=== PATIENT | male | born 1960 | race Caucasian/White ===

== ENCOUNTER 2016-12-25 22:17 | Emergency (ER) | payer SELFPAY ==
[~2016-12-25] VITALS: Ht 188 cm; Wt 151.0 kg
[2016-12-25 22:23] VITALS: BP 147/91; PULSE 63; TEMP 37.1; O2SAT 94; Ht 188 cm; Wt 151.0 kg
[2016-12-25] MEDS ORDERED: SPIR100T PO (22:56)
[2016-12-25] MEDS ORDERED: METO25TA3 PO (22:56)
[2016-12-25] MEDS ORDERED: OXCA600T2 PO (22:56)
[2016-12-25] MEDS ORDERED: DOXA4TAB5 PO (22:56)
[2016-12-25] MEDS ORDERED: DILT120C43 PO (22:56)
[2016-12-25] MEDS ORDERED: PROP225T PO (22:56)
[2016-12-25] MEDS ORDERED: SIMV10TA2 PO (22:56)
[2016-12-25] MEDS ORDERED: ASPI-461 PO (22:56)
[2016-12-25 23:05] LABS: MANUAL MICROSCOPIC REQUIRED? NO; REVIEW REQ? NO; URINE APPEARANCE CLEAR (CLEAR); URINE BILIRUBIN NEG (NEG); URINE COLOR YELLOW; URINE EPITHELIAL CELL AUTO 0-5 /lpf (0-5); URINE NITRITE NEG (NEG); URINE SPECIFIC GRAVITY 1.018 (1.000-1.030); UROBILINOGEN NEG (NEG); ZZUR CULT IF INDIC CLEAN CATCH NO
--- NOTE | 2016-12-26 04:51 | EMERGENCY ROOM VISIT NOTE ---
History First contact with patient: 22:33 Chief Complaint: HEMATURIA Stated Complaint: BLEEDING FROM URETHRA Nursing Triage Summary: PT has blood in urine, started today, no back pain or abd pain. denies HX of kidney stones or UTI. History of Present Illness The patient is a 56 year old male who presents to the Emergency Room with complaints of blood in his urine for the past one day. The patient does not have fever, back pain, chest pain, or abdominal pain. He does not have pain with urination. Evidently the patient is visiting from [place], and will be in the area for another week. He follows with urology back home, and has difficulty with urinary incontinence. He was wearing a sanitary pad in his underwear and noticed a small amount of blood in this. The patient evidently has had symptoms like this in the past, and did have a scope that was reportedly normal. The patient does not have other complaints. He is not on blood thinners. He does not have pain and rates his discomfort a 0/10. Review of Systems More than 10 systems were reviewed and otherwise negative with the exception of history of present illness. Past Medical/Surgical History History of hematuria Family History No pertinent family history Social History Smoking Status: Never Smoker Housing Status: lives with family Current/Historical Medications Scheduled Aspirin (Aspirin), 81 MG PO DAILY Diltiazem Hcl Coated Beads (Cartia Xt), 120 MG PO DAILY Doxazosin Mesylate (Doxazosin), 8 MG PO QPM Metoprolol Succinate (Toprol Xl), 25 MG PO DAILY Oxcarbazepine (Trileptal), 600 MG PO BID Propafenone Hcl (Propafenone Hcl), 225 MG PO BID Simvastatin (Zocor), 10 MG PO QPM Spironolactone (Aldactone), 100 MG PO DAILY Physical Exam Vital Signs Date Time Temp Pulse Resp B/P (MAP) Pulse Ox O2 Delivery O2 Flow Rate FiO2 12/25/16 22:23 37.1 63 20 147/91 94 Room Air Physical Exam VITALS: Vitals are noted on the nurse's note and reviewed by myself. Vital signs stable. GENERAL: Well-developed, well-nourished, white male, who is in no acute distress and resting comfortably. Patient is cooperative with the examination. HEART: Regular rate and rhythm without murmurs gallops or rubs. LUNGS: Clear to auscultation bilaterally without wheezes, rales or rhonchi. No retractions or accessory muscle use. ABDOMEN: Positive normal bowel sounds x 4. Soft, nontender, without masses or organomegaly. No guarding or rebound tenderness. : Normal-appearing external male genitalia. Circumcised phallus without significant urethral drainage, discharge, or ulceration. No testicular tenderness. No obvious hernia. Medical Decision & Procedures Laboratory Results Test 12/25/16 22:55 Urine Color YELLOW Urine Appearance CLEAR (CLEAR) Urine pH 5.0 (4.5-7.5) Urine Specific Jackson 1.018 (1.000-1.030) Urine Protein NEG (NEG) Urine Glucose (UA) NEG (NEG) Urine Ketones TRACE (NEG) Urine Occult Blood 2+ (NEG) Urine Nitrite NEG (NEG) Urine Bilirubin NEG (NEG) Urine Urobilinogen NEG (NEG) Urine Leukocyte Esterase NEG (NEG) Urine WBC (Auto) 1-5 /hpf (0-5) Urine RBC (Auto) >30 /hpf (0-4) Urine Hyaline Casts (Auto) 1-5 /lpf (0-5) Urine Epithelial Cells (Auto) 0-5 /lpf (0-5) Urine Bacteria (Auto) NEG (NEG) ED Course Physical exam and history were performed. Nursing notes, EMR, and Medication List were personally reviewed. Patient appears to have blood in his urine. He was able to provide a sample which did confirm 2+ blood in the urine. The patient is not having pain and is not on blood thinners. His physical exam is benign. He does not appear to have a UTI or other significant symptoms at this time. I discussed options of care with the patient, as he likely needs a urology evaluation. The patient is traveling from [place] and will be returning next week. I will provide him information for local urology as a convenience. The patient is otherwise to continue his normal medication and follow up with urology as soon as reasonably possible. He was certainly very back to the ER with any new, worsening, or concerning symptoms. The chart was completed utilizing [employer] Voice Recognition Software. Grammatical errors, random word insertions, pronoun errors, and incomplete sentences are an occasional consequence of this system due to software limitations, ambient noise, and hardware issues. Any formal questions or concerns about the content, text, or information contained within the body of this dictation should be directly addressed to the provider for clarification. . Medical Decision Differential diagnosis includes, but is not limited to: Hematuria, cancer, renal disease, kidney stone, UTI, pyelonephritis, STD, prostatitis, and others Blood Pressure Screening Patient's blood pressure: Elevated blood pressure Blood pressure disposition: Elevated BP felt to be situational Impression Primary Impression: Painless hematuria Departure Information Dispostion Home / Self-Care Condition GOOD Referrals Shine Alvarado MD, Urology Forms WORK / SCHOOL INSTRUCTIONS, HOME CARE DOCUMENTATION FORM, IMPORTANT VISIT INFORMATION Patient Instructions My [facility] Additional Instructions You were seen and evaluated today on an emergency basis only. This is not a substitute for, or an effort to provide, complete comprehensive medical care. It is not possible to recognize and treat all injuries or illnesses in a single emergency department visit. For this reason it is recommended that you followup with Urology in the next 1- 2 weeks for recheck of your condition. We have provided the information for local Urology, Dr. Alvarado, if you would like to be seen here before going home. Continue your medications as prescribed. You are welcome to return to the emergency department anytime with new, worsening, or concerning symptoms.
== END 2016-12-25 23:54 | disposition home or self-care (01) ==
LOC: C.EDB 22:20 → C.EDC 23:54
DX: R31.9 Hematuria, unspecified (principal); Z79.82 Long term (current) use of aspirin; Z87.448 Personal history of other diseases of urinary system; R03.0 Elevated blood-pressure reading, without diagnosis of hypertension

== ENCOUNTER 2017-07-17 23:09 | Emergency (ER) | payer SELFPAY ==
[~2017-07-17] VITALS: Ht 188 cm; Wt 154.0 kg
[~2017-07-17 23:09] MED LIST: ASPI-461 PO; DILT120C43 PO; DOXA4TAB5 PO; METO25TA4 PO; OXCA600T2 PO; PROP225T PO; SIMV10TA2 PO; SPIR100T PO
[2017-07-17 23:15] VITALS: TEMP 36.9; Ht 188 cm; Wt 154.0 kg
[2017-07-17] MEDS ORDERED: ONDANSETRON INJ 2 MG/ML 2 ML VIAL IV STA (23:44)
--- NOTE | 2017-07-17 23:53 | EMERGENCY ROOM VISIT NOTE ---
History Report prepared by Gala: Tania Hernandez Under the Supervision of: Dr. Mariah Wakefield D.O. First contact with patient: 23:18 Chief Complaint: CARDIAC ASSESSMENT Stated Complaint: HIGH PULSE RATE, NAUSEA, HEART ATTACK? History of Present Illness The patient is a 56 year old male who presents to the Emergency Room with complaints persistent general palpitations since 2244 today. He notes a general bad feeling everywhere and then he noticed that he was sweating. He states that he felt nervous and checked his blood pressure was in the 140s systolic. He vomited twice this evening here in triage. He reports dry mouth. He can feel his heartbeat. He notes that he was fine up until that time. He reports having diarrhea while here in the ED. He has a history of atrial fibrillation. He takes Aspirin. He had an ablation February 2017. He denies any chest pain. He states that he is visiting here. He denies any history of cardiac catheterization. He states that he did have a stress test performed over a year ago. He states that he did not do well that he "did not go the full distance." He denies any sick contacts. He states that he feels pressure in his abdomen. He notes nausea. Source of History: patient Onset: 2244 today Position: other (general ) Quality: other (palpitations) Timing: other (persistent) Associated Symptoms: + diaphoresis (sweating), + nausea, + vomiting, + abdominal pain (pressure), + diarrhea, No chest pain Note: Notes dry mouth. Review of Systems See HPI for pertinent positives & negatives. A total of 10 systems reviewed and were otherwise negative. Past Medical & Surgical Medical Problems: (1) Atrial fibrillation (2) Painless hematuria Surgical Problems: (1) History of cardiac radiofrequency ablation Family History Hypertension Social History Smoking Status: Never Smoker Smokeless Tobacco Use: No Alcohol Use: none Drug Use: none Marital Status: single Housing Status: lives with roommate Occupation Status: unemployed Current/Historical Medications Scheduled Aspirin (Aspirin), 81 MG PO DAILY Doxazosin Mesylate (Doxazosin), 8 MG PO QPM Metoprolol Succinate (Metoprolol Succinate ER), 25 MG PO DAILY Oxcarbazepine (Trileptal), 600 MG PO BID Simvastatin (Zocor), 10 MG PO QPM Spironolactone (Aldactone), 100 MG PO DAILY Allergies Coded Allergies: No Known Allergies (Unverified , 12/25/16) Physical Exam Vital Signs Date Time Temp Pulse Resp B/P (MAP) Pulse Ox O2 Delivery O2 Flow Rate FiO2 07/18/17 02:25 73 16 104/66 96 Room Air 07/18/17 02:24 68 18 110/67 94 07/18/17 02:00 68 18 110/67 94 Room Air 07/18/17 01:05 72 18 120/82 94 Room Air 07/18/17 00:00 82 108/75 93 Room Air 07/17/17 23:58 90 Nasal Cannula 2.0 07/17/17 23:41 104 07/17/17 23:41 104 20 133/79 91 Room Air 07/17/17 23:25 88 Room Air 07/17/17 23:15 36.9 116 20 132/86 95 Room Air Physical Exam General: uncomfortable, anxious. HEENT: Head - normocephalic and atraumatic Pupils are equal, round, and reactive to light. Extraocular eye muscles are intact, and sclera are anicteric. Nose - moist nasal mucosa without discharge. Mouth - moist buccal mucosa. Oropharynx is nonerythematous and there is no tonsillar exudate or edema noted. Neck: Supple; no JVD, nuchal rigidity, cervical lymphadenopathy, or auscultated bruits. Heart: Regular rate and rhythm. There is a normal S1 and S2 with no murmurs, clicks, or gallops appreciated. Lungs: Clear to auscultation bilaterally with no wheezes, rales, or rhonchi. Abdomen: Soft, completely nontender, nondistended, with good bowel sounds. There are no palpable pulsatile masses or hepatosplenomegaly. There is no guarding, rigidity, or rebound noted. Extremities: No evidence of cyanosis, clubbing, or edema. There are easily palpable peripheral pulses. Skin: warm with good turgor and no rashes. Pale.and diaphoretic. Medical Decision & Procedures Laboratory Results 07/17/17 23:25 Red Blood Count 4.74, Mean Corpuscular Volume 88.0, Mean Corpuscular Hemoglobin 31.2, Mean Corpuscular Hemoglobin Concent 35.5, Mean Platelet Volume 9.7, Neutrophils (%) (Auto) 67.4, Lymphocytes (%) (Auto) 27.0, Monocytes (%) (Auto) 4.3, Eosinophils (%) (Auto) 0.5, Basophils (%) (Auto) 0.1, Neutrophils # (Auto) 6.13, Lymphocytes # (Auto) 2.46, Monocytes # (Auto) 0.39, Eosinophils # (Auto) 0.05, Basophils # (Auto) 0.01 07/17/17 23:25 Test 07/17/17 23:25 07/18/17 01:35 White Blood Count 9.10 K/uL (4.8-10.8) Red Blood Count 4.74 M/uL (4.7-6.1) Hemoglobin 14.8 g/dL (14.0-18.0) Hematocrit 41.7 % (42-52) Mean Corpuscular Volume 88.0 fL (80-100) Mean Corpuscular Hemoglobin 31.2 pg (25-34) Mean Corpuscular Hemoglobin Concent 35.5 g/dl (32-36) Platelet Count 161 K/uL (130-400) Mean Platelet Volume 9.7 fL (7.4-10.4) Neutrophils (%) (Auto) 67.4 % Lymphocytes (%) (Auto) 27.0 % Monocytes (%) (Auto) 4.3 % Eosinophils (%) (Auto) 0.5 % Basophils (%) (Auto) 0.1 % Neutrophils # (Auto) 6.13 K/uL (1.4-6.5) Lymphocytes # (Auto) 2.46 K/uL (1.2-3.4) Monocytes # (Auto) 0.39 K/uL (0.11-0.59) Eosinophils # (Auto) 0.05 K/uL (0-0.5) Basophils # (Auto) 0.01 K/uL (0-0.2) RDW Standard Deviation 41.7 fL (36.4-46.3) RDW Coefficient of Variation 13.1 % (11.5-14.5) Immature Granulocyte % (Auto) 0.7 % Immature Granulocyte # (Auto) 0.06 K/uL (0.00-0.02) Red Blood Cell Morphology Unremarkable Anion Gap 7.0 mmol/L (3-11) Est Creatinine Clear Calc Drug Dose 87.1 ml/min Estimated GFR () 61.1 Estimated GFR (Non- 52.7 BUN/Creatinine Ratio 14.2 (10-20) Calcium Level 8.9 mg/dl (8.5-10.1) Total Bilirubin 0.3 mg/dl (0.2-1) Direct Bilirubin < 0.1 mg/dl (0-0.2) Aspartate Amino Transf (AST/SGOT) 40 U/L (15-37) Alanine Aminotransferase (ALT/SGPT) 70 U/L (12-78) Alkaline Phosphatase 107 U/L (45-117) Total Protein 7.9 gm/dl (6.4-8.2) Albumin 4.0 gm/dl (3.4-5.0) Lipase 120 U/L (73-393) Thyroid Stimulating Hormone (TSH) 2.820 uIu/ml (0.300-4.500) Troponin I < 0.015 ng/ml (0-0.045) Laboratory results per my review. Medications Administered Medications (Trade) Dose Ordered Sig/Juan Route Start Time Stop Time Status Last Admin Dose Admin Ondansetron HCl (Zofran Inj) 4 mg NOW STAT IV 07/17/17 23:44 07/17/17 23:46 DC 07/17/17 23:55 4 MG Procedure 2344: Ordered Zofran 4 mg IV ECG Per My Interpretation Indication: palpitations Rate (beats per minute): 76 Rhythm: normal sinus Findings: Q waves (Inferior), ST depression (Inferior), no ectopy Change: Repeat ECG: Normal Sinus Rhythm 100 bpm Findings: ST segments not as depressed, no ectopy. ED Course 2329: Past medical records reviewed. The patient was evaluated in room B6. A complete history and physical exam was performed. IV lock was established. A 12 -lead EKG was obtained. The patient went to the bathroom and had significant diarrhea. He was quite pale and diaphoretic after this episode. 2344: Ordered Zofran 4 mg IV. His EKG was repeated as described above. 0010: I reassessed the patient at this time. He feels better; his HR and blood pressure came down. He still has a feeling of being generally unwell. 0115: I reassessed the patient at this time. He is feeling better. He is drinking fluids. The patient will have a repeat troponin performed. 0215: I reassessed the patient at this time. He is feeling better and resting comfortably. I discussed the results and treatment plan with the patient. I answered all pertaining questions that he had. He expressed understanding and verbalized agreement. The patient will be discharged home. Medical Decision The patient is a 56 year old male who presents to the ED with palpitations. Differential diagnosis includes aortic dissection, pancreatitis, gastroenteritis , ACS, and cardiac dysrhythmia. Lab results showed: No leukocytosis. Stable H&H. BUN 21. Creat 1.4. Gluc 117. Normal LFTs. Normal Lipase. Normal TSH. Negative Troponin. Second Troponin is negative. This patient developed palpitations at home then became quite nauseated. Upon entering triage, the patient had 2 episodes of vomiting. Upon entering the exam room, the patient had moderate amount of diarrhea. The palpitations have resolved. He has absolutely no associated chest pain or abdominal pain. The patient had 2 negative troponins. The EKG had some ST segment depression in the inferior leads initially that then resolved. We have no previous EKG for comparison. The patient's symptoms completely resolved while here in the emergency department. I have asked the patient to follow-up closely with his primary care physician when he returns home on Saturday. If he has any worsening symptoms while here in [place], he should return here to the ER for further care. Medication Reconcilliation Current Medication List: was personally reviewed by me Blood Pressure Screening Patient's blood pressure: Normal blood pressure Impression Primary Impression: Palpitations Additional Impression: Vomiting and diarrhea Scribe Attestation The scribe's documentation has been prepared under my direction and personally reviewed by me in its entirety. I confirm that the note above accurately reflects all work, treatment, procedures, and medical decision making performed by me. Departure Information Dispostion Home / Self-Care Referrals No Doctor, Assigned (PCP) Forms IMPORTANT VISIT INFORMATION Patient Instructions ED Palpitations, GERD, GERD Lifestyle Changes, GERD Meds, My [facility], Vomit Diarrhea Self Care Additional Instructions Rest. Return to the ER for any chest pain or abdominal pain Take a bland diet. Follow up with PCP if symptoms persist. Take zantac - 150mg every 12 hours for next 2 weeks to see if it has an effect on your reflux. Problem Qualifiers
[2017-07-17 23:55] LABS: HEMATOCRIT 41.7 % (42-52); HEMOGLOBIN 14.8 g/dL (14.0-18.0); MEAN CORPUSCULAR HEMOGLOBIN 31.2 pg (25-34); MEAN CORPUSCULAR HGB CONC 35.5 g/dl (32-36); MEAN PLATELET VOLUME 9.7 fL (7.4-10.4); PLATELET COUNT 161 K/uL (130-400); RED CELL DISTRIBUTION WIDTH CV 13.1 % (11.5-14.5); RED CELL DISTRIBUTION WIDTH SD 41.7 fL (36.4-46.3)
[2017-07-17 23:58] VITALS: O2SAT 90
[2017-07-18] MEDS ORDERED: TPRSR25 PO (00:11)
[2017-07-18 00:17] LABS: BASO % 0.1 %; BASO ABS # 0.01 K/uL (0-0.2); EOS % 0.5 %; EOS ABS # 0.05 K/uL (0-0.5); IG# 0.06 K/uL (0.00-0.02); LYMPH ABS # 2.46 K/uL (1.2-3.4); MONO % 4.3 %; MONO ABS # 0.39 K/uL (0.11-0.59); NEUT % 67.4 %; NEUT ABS # 6.13 K/uL (1.4-6.5)
[2017-07-18 00:24] LABS: BLOOD UREA NITROGEN 21 mg/dl (7-18); CREATININE 1.45 mg/dl (0.60-1.40); GLUCOSE 117 mg/dl (70-99)
[2017-07-18 00:25] LABS: ALKALINE PHOSPHATASE 107 U/L (45-117); ALT/SGPT 70 U/L (12-78); AST/SGOT 40 U/L (15-37); CALCIUM 8.9 mg/dl (8.5-10.1); CARBON DIOXIDE 27 mmol/L (21-32); LIPASE 120 U/L (73-393); SODIUM 139 mmol/L (136-145); TOTAL PROTEIN 7.9 gm/dl (6.4-8.2)
[2017-07-18 02:25] VITALS: BP 104/66; PULSE 73; O2SAT 96
== END 2017-07-18 02:25 | disposition home or self-care (01) ==
LOC: C.EDB 23:09
DX: R00.2 Palpitations (principal); R11.2 Nausea with vomiting, unspecified; R19.7 Diarrhea, unspecified; I48.91 Unspecified atrial fibrillation; Z79.82 Long term (current) use of aspirin; Z82.49 Family history of ischemic heart disease and other diseases of the circulatory system; Z79.899 Other long term (current) drug therapy

== ENCOUNTER 2019-09-26 14:23 | Inpatient (IN) ==
[2019-09-26] MEDS ORDERED: LORazepam 1 MG TAB SL STA (15:00)
[2019-09-26] MEDS ORDERED: METOPROLOL TARTRATE 1 MG/ML VIAL IV PRN (15:00)
[2019-09-26] MEDS ORDERED: SODIUM CHLORIDE 0.9% 500 ML IV SCH (15:00)
--- NOTE | 2019-09-26 15:08 | Emergency Department Note ---
Impression & Plan Atrial fibrillation with RVR, Palpitations ED Provider Note NAME: DAVE LENTZ AGE: 58 SEX: M : 1960 ARRIVES VIA: Walk-In INFORMANT: [Patient] ED PROVIDER(S): [Corey Shah MD] CHIEF COMPLAINT: Palpitations HISTORY OF PRESENT ILLNESS: The patient is a 58-year-old male who is visiting from [place]. He is going to be here for about a month. The patient has a history of A. fib. A few years ago, he had an ablation. He does take metoprolol on a daily basis, no blood thinners other than a baby aspirin. The patient was doing some moving today, he was going up and down the stairs a bit. He had no difficulty with the stairs. He sat down to take a rest and felt his heart start to race. His pulse was irregular. No chest pain, no nausea, no shortness of breath. The patient states that this all began about 3 hours. The patient states that he was concerned he was back in A. fib, that is why he is here. The patient has been in baseline health, no cough or cold or congestion. He has been taking his medications as prescribed. At present, he feels anxious and is asking for a dose of Ativan, he does take this outside the hospital when he feels anxious. REVIEW OF SYSTEMS: See HPI for pertinent positives and negatives. A total of ten systems were reviewed and were otherwise negative. PMHx/PSHx: See Below SOCIAL HISTORY: See Below. PHYSICAL EXAM: GENERAL: Patient is in no acute distress. HEENT: No acute trauma, normocephalic atraumatic, mucous membranes moist, no nasal congestion, no scleral icterus. NECK: No stridor, no adenopathy, no meningismus, trachea is midline. LUNGS: Clear to auscultation bilaterally, no wheeze, no rhonchi, breath sounds equal. HEART: No murmurs, tachycardic, irregular rhythm. ABDOMEN: Soft, nontender, bowel sounds positive, no hernias, no peritonitis. EXTREMITIES: No cyanosis, very subtle mild bilateral pedal edema, full range of motion of all the joints without pain or difficulty, no signs for acute trauma. NEUROLOGIC: Oriented x 3, no acute motor or sensory deficits, no focal weakness. SKIN: No rash, no jaundice, no diaphoresis. Psych: Cooperative, does seem slightly anxious. DIFFERENTIAL DIAGNOSIS: Dehydration, A. fib, a flutter, SVT, AL, electrolyte abnormality, dehydration, thyroid disorder, renal failure. EMERGENCY DEPARTMENT COURSE/PROCEDURES: ECG: Indication was palpitations. The ECG shows an atrial fibrillation with a rate of 122. There is some nonspecific ST change diffusely. There is a potential old inferior infarct. No PVCs. The QTc is 487. Continuous Cardiac Monitoring: An order was placed for continuous cardiac monitoring. The monitor shows a rate of 125 with atrial fibrillation. Critical Care Note: I have personally spent greater than 42 minutes of critical care time in the direct management of this patient. This includes bedside care, interpretation of diagnostic studies, and testing, discussion with consultants, patient, and family members, and other required patient management activities. This 42 minutes is in excess of all separately billable procedures. MEDICAL DECISION MAKING: There is no leukocytosis or concerning anemia. No coagulopathy. No significant electrolyte abnormality or kidney failure. No concerning liver enzyme elevation. No evidence for pancreatitis. The patient appeared to be in a euthyroid state. ECG shows a rapid A. fib, no acute ischemia. Cardiac enzyme testing x1 is not consistent with acute cardiac injury. Chest x-ray does not show mediastinal widening, pneumonia or CHF. The patient was given IV saline, 1 L was given. He was initially given a dose of IV metoprolol however, his blood pressure dropped with this medication. He had only received 5 mg. Patient was given Ativan sublingual, 1 mg. This was given for anxiety. He was given a bolus of IV diltiazem and placed on a diltiazem drip. The patient is going to require hospitalization for the rapid A. fib. He is currently on a diltiazem drip. He is currently very comfortable in the room. I did speak to the patient and case management. The on-call hospitalist has been consulted. Past Med/Surg History Medical History Atrial fibrillation (Chronic) Social History Smoking Status: Never smoker Feels Safe at Home: Yes Allergies Allergies Allergy/AdvReac Type Severity Reaction Status Date / Time No Known Allergies Allergy Unverified 04/23/18 05:33 Home Meds Home Medications Medication Instructions Recorded Confirmed doxazosin 8 mg PO QPM 04/23/18 09/26/19 metoprolol succinate 25 mg PO DAILY 04/23/18 09/26/19 oxcarbazepine 600 mg PO BID 04/23/18 09/26/19 simvastatin 10 mg PO QPM 04/23/18 09/26/19 spironolactone 100 mg PO DAILY 04/23/18 09/26/19 aspirin 81 mg PO DAILY 09/26/19 09/26/19 omeprazole 20 mg PO QAM 09/26/19 09/26/19 quetiapine 25 mg PO QPM 09/26/19 09/26/19 Results & Data (ED) Vital Signs Vital Signs - 24 hr 09/26/19 14:26 09/26/19 14:55 09/26/19 15:08 Temperature 36.9 C Temperature Source Oral Pulse Rate 77 150 H 92 H Pulse Rate from SpO2 Sensor Pulse Rhythm Regular Pulse Strength Normal Respiratory Rate 20 19 15 Respiratory Effort / Characteristics Non-Labored Spontaneous Respiratory Depth Normal Respiratory Pattern Regular Blood Pressure 174/146 H Blood Pressure Mean 152 Blood Pressure Position Sitting Pulse Oximetry 95 Oxygen Delivery Method Room Air Sepsis Recent Fever Within 48 Hours No Sepsis New/Unexplained Change in Mental Status No Sepsis Action Taken by Nursing No Action Required 09/26/19 15:10 09/26/19 15:21 09/26/19 15:24 Temperature Temperature Source Pulse Rate 113 H 87 Pulse Rate from SpO2 Sensor Pulse Rhythm Pulse Strength Respiratory Rate 15 16 15 Respiratory Effort / Characteristics Respiratory Depth Respiratory Pattern Blood Pressure 98/76 L Blood Pressure Mean 79 Blood Pressure Position Pulse Oximetry Oxygen Delivery Method Sepsis Recent Fever Within 48 Hours Sepsis New/Unexplained Change in Mental Status Sepsis Action Taken by Nursing 09/26/19 15:29 09/26/19 15:31 09/26/19 15:40 Temperature Temperature Source Pulse Rate 101 H 159 H 111 H Pulse Rate from SpO2 Sensor 116 H Pulse Rhythm Pulse Strength Respiratory Rate 27 H 17 14 Respiratory Effort / Characteristics Respiratory Depth Respiratory Pattern Blood Pressure 100/79 122/77 Blood Pressure Mean 85 105 Blood Pressure Position Pulse Oximetry 95 Oxygen Delivery Method Sepsis Recent Fever Within 48 Hours Sepsis New/Unexplained Change in Mental Status Sepsis Action Taken by Nursing 09/26/19 15:44 09/26/19 15:45 09/26/19 15:50 Temperature Temperature Source Pulse Rate 124 H 117 H 122 H Pulse Rate from SpO2 Sensor 81 78 77 Pulse Rhythm Pulse Strength Respiratory Rate 12 14 15 Respiratory Effort / Characteristics Respiratory Depth Respiratory Pattern Blood Pressure 105/66 107/68 Blood Pressure Mean 72 77 Blood Pressure Position Pulse Oximetry 96 95 94 Oxygen Delivery Method Sepsis Recent Fever Within 48 Hours Sepsis New/Unexplained Change in Mental Status Sepsis Action Taken by Nursing 09/26/19 15:55 09/26/19 16:00 09/26/19 16:06 Temperature Temperature Source Pulse Rate 84 103 H 103 H Pulse Rate from SpO2 Sensor 73 89 109 H Pulse Rhythm Pulse Strength Respiratory Rate 17 19 15 Respiratory Effort / Characteristics Respiratory Depth Respiratory Pattern Blood Pressure 102/78 109/80 120/73 Blood Pressure Mean 87 84 88 Blood Pressure Position Pulse Oximetry 93 94 93 Oxygen Delivery Method Sepsis Recent Fever Within 48 Hours Sepsis New/Unexplained Change in Mental Status Sepsis Action Taken by Nursing 09/26/19 16:10 09/26/19 16:15 09/26/19 16:20 Temperature Temperature Source Pulse Rate 118 H 104 H 145 H Pulse Rate from SpO2 Sensor 75 81 83 Pulse Rhythm Pulse Strength Respiratory Rate 17 12 16 Respiratory Effort / Characteristics Respiratory Depth Respiratory Pattern Blood Pressure 114/74 118/89 Blood Pressure Mean 91 99 Blood Pressure Position Pulse Oximetry 95 94 95 Oxygen Delivery Method Sepsis Recent Fever Within 48 Hours Sepsis New/Unexplained Change in Mental Status Sepsis Action Taken by Longterm Medications Current Medication List: was personally reviewed by me Laboratory Data Attestation: I reviewed the patient's lab results. Result diagrams: 09/26/19 15:10 09/26/19 15:10 Lab Results 09/26/19 09/26/19 09/26/19 Range/Units 15:10 15:10 15:10 WBC 7.19 (4.8-10.8) K/uL RBC 4.63 L (4.7-6.1) M/uL Hgb 14.2 (14.0-18.0) g/dL Hct 41.1 L (42-52) % MCV 88.8 (80-100) fL MCH 30.7 (25-34) pg MCHC 34.5 (32-36) g/dL RDW Std Deviation 41.9 (36.4-46.3) fL RDW Coeff of Chris 13.0 (11.5-14.5) % Plt Count 163 (130-400) K/uL MPV 9.8 (7.4-10.4) fL Immature Gran % (Auto) 0.4 % Neut % (Auto) 72.7 % Lymph % (Auto) 18.4 % [place] % (Auto) 7.4 % Eos % (Auto) 0.8 % Baso % (Auto) 0.3 % Neut # (Auto) 5.23 (1.4-6.5) K/uL Lymph # (Auto) 1.32 (1.2-3.4) K/uL [place] # (Auto) 0.53 (0.11-0.59) K/uL Eos # (Auto) 0.06 (0-0.5) K/uL Baso # (Auto) 0.02 (0-0.2) K/uL Immature Gran # (Auto) 0.03 H (0.00-0.02) K/uL PT 11.1 (9.0-12.0) Seconds INR 1.1 (0.9-1.1) APTT 27.9 (21.0-31.0) Seconds PTT Ratio 1.0 Sodium 140 (136-145) mmol/L Potassium 3.9 (3.5-5.1) mmol/L Chloride 109 H (98-107) mmol/L Carbon Dioxide 26 (21-32) mmol/L Anion Gap 4.0 (3-11) BUN 20 H (7-18) mg/dl Creatinine 1.15 (0.6-1.4) mg/dl Est Cr Clr Drug Dosing Not Reportable Est GFR ( Amer) 79.7 Est GFR (Non-Af Amer) 68.8 BUN/Creatinine Ratio 17.4 (10-20) Glucose 126 H (70-99) mg/dl Calcium 8.9 (8.5-10.1) mg/dl Magnesium 2.0 (1.8-2.4) mg/dl Total Bilirubin 0.3 (0.2-1) mg/dl AST 38 H (15-37) U/L ALT 53 (12-78) U/L Alkaline Phosphatase 88 (45-117) U/L Troponin I < 0.015 (0-0.045) ng/ml Total Protein 7.7 (6.4-8.2) gm/dl Albumin 3.8 (3.4-5.0) gm/dl Globulin 3.9 (2.5-4.0) gm/dl Albumin/Globulin Ratio 1.0 (0.9-2) Lipase 94 (73-393) U/L TSH 0.990 (0.300-4.500) uIu/ml Administered Medications Diltiazem HCl 125 mg/ Dextrose 125 mls @ 5 mls/hr IV .Q24H [facility]; Protocol Stop: 10/26/19 15:44 Last Admin: 09/26/19 15:46 Dose: 5 mg/hr, 5 mls/hr Documented by: [id number] Cosigned by: [id number] Metoprolol Tartrate (Lopressor) 5 mg IV Q5M PRN PRN Reason: Tachycardia Stop: 10/26/19 14:59 Last Admin: 09/26/19 15:23 Dose: 5 mg Documented by: [id number] Discontinued Medications Diltiazem HCl (Cardizem) 10 mg IV NOW STA Stop: 09/26/19 15:33 Last Admin: 09/26/19 15:40 Dose: 10 mg Documented by: [id number] Cosigned by: [id number] Sodium Chloride (Nss) 500 mls @ 999 mls/hr IV .Q31M DAPHNE Stop: 09/26/19 15:30 Last Infusion: 09/26/19 15:50 Dose: 0 mls/hr Documented by: [id number] Admin: 09/26/19 15:23 Dose: 999 mls/hr Documented by: [id number] Sodium Chloride (Nss 1000ml) 500 mls @ 999 mls/hr IV .Q31M ONE Stop: 09/26/19 16:02 Last Infusion: 09/26/19 16:17 Dose: 0 mls/hr Documented by: [id number] Admin: 09/26/19 15:41 Dose: 999 mls/hr Documented by: [id number] Lidocaine/Epinephrine (Xylocaine/Epinephrine 1%) Confirm Administered Dose 20 ml .ROUTE .STK-MED ONE Stop: 09/26/19 16:24 Last Admin: 09/26/19 17:06 Dose: Not Given Documented by: [id number] Lidocaine/Epinephrine (Xylocaine/Epinephrine 1%) 20 ml INFIL NOW ONE Stop: 09/26/19 16:24 Last Admin: 09/26/19 17:05 Dose: 20 ml Documented by: [id number] Lorazepam (Ativan) 1 mg SL NOW STA Stop: 09/26/19 15:01 Last Admin: 09/26/19 15:23 Dose: 1 mg Documented by: [id number] Miscellaneous () 1 ea N/A NOW STA Stop: 09/26/19 15:33 Last Admin: 09/26/19 17:06 Dose: Not Given Documented by: [id number] Imaging Data Radiologist's Impression: XR chest 1V portable HISTORY: 58 years-old Male Chest Pain acute atypical chest pain COMPARISON: Chest radiograph 04/23/2018 TECHNIQUE: Portable AP view of the chest FINDINGS: Cardiac silhouette is mildly enlarged, unchanged. No pneumothorax, pleural effusion, airspace consolidation or overt pulmonary edema. Degenerative changes of the shoulders and spine. IMPRESSION: No acute process. Blood Pressure Blood Pressure Findings: Elevated blood pressure Blood Pressure Disposition: further management by hospitalist Discharge Plan Visit Data Chief Complaint: Cardiac Assessment Stated Complaint: A-FIB TYPICAL ED Provider: Corey Shah Discharge Problem: Atrial fibrillation with RVR, Palpitations Patient Disposition: Admitted As Inpatient Condition: Good Discharge Instructions Interventions: ED Discharge Assessment Last Done: 09/26/19 17:30 Forms Stand Alone Forms: [facility], Virtual Emergency Department, Important Visit Information Prescriptions Prescriptions: No Action quetiapine 25 mg tablet 25 mg PO QPM RF: 0 aspirin 81 mg Tablet,Delayed Release (Dr/Ec) 81 mg PO DAILY RF: 0 omeprazole 20 mg capsule,delayed release(DR/EC) 20 mg PO QAM RF: 0 spironolactone 100 mg tablet 100 mg PO DAILY RF: 0 simvastatin 10 mg tablet 10 mg PO QPM RF: 0 doxazosin 4 mg tablet 8 mg PO QPM RF: 0 oxcarbazepine 600 mg Tablet 600 mg PO BID RF: 0 metoprolol succinate 25 mg tablet extended release 24 hr 25 mg PO DAILY RF: 0 Referrals Referrals: PCP,NO [Primary Care Provider] -
--- NOTE | 2019-09-26 15:25 | XRay Report ---
XR chest 1V portable HISTORY: 58 years-old Male Chest Pain acute atypical chest pain COMPARISON: Chest radiograph 04/23/2018 TECHNIQUE: Portable AP view of the chest FINDINGS: Cardiac silhouette is mildly enlarged, unchanged. No pneumothorax, pleural effusion, airspace consoli dation or overt pulmonary edema. Degenerative changes of the shoulders and spine. IMPRESSION: No acute process. ACT 112: Negative or not required by law. The above report was generated using voice recognition software. It may contain grammatical, syntax o r spelling errors. Electronically signed by: Cody Child M.D. 09/26/2019 3:24 PM
[2019-09-26 15:27] LABS: Basophils # (auto) 0.02 K/uL (0-0.2); Basophils % (auto) 0.3 %; Eosinophils # (auto) 0.06 K/uL (0-0.5); Eosinophils % (auto) 0.8 %; Hematocrit (blood only) 41.1 % (42-52); Hemoglobin 14.2 g/dL (14.0-18.0); Immature Granulocytes # (auto) 0.03 K/uL (0.00-0.02); Immature Granulocytes % (auto) 0.4 %; Lymphocytes # (auto) 1.32 K/uL (1.2-3.4); Lymphocytes % (auto) 18.4 %; Mean Corpuscular Hemoglobin 30.7 pg (25-34); Mean Corpuscular Hgb Conc 34.5 g/dL (32-36); Mean Corpuscular Volume 88.8 fL (80-100); Mean Platelet Volume 9.8 fL (7.4-10.4); Monocytes # (auto) 0.53 K/uL (0.11-0.59); Monocytes % (auto) 7.4 %; Neutrophils # (auto) 5.23 K/uL (1.4-6.5); Neutrophils % (auto) 72.7 %; Platelet Count 163 K/uL (130-400); RDW Standard Deviation 41.9 fL (36.4-46.3); Red Blood Count 4.63 M/uL (4.7-6.1); White Blood Count 7.19 K/uL (4.8-10.8)
[2019-09-26] MEDS ORDERED: dilTIAZem HCl 5 MG/ML 5 ML VIAL IV STA (15:32)
[2019-09-26] MEDS ORDERED: STAT IV Infusion **Titration per Protocol STA (15:32)
[2019-09-26] MEDS ORDERED: SODIUM CHLORIDE 0.9% 1000ML 500 ML IV ONE (15:32)
[2019-09-26 15:39] LABS: INR 1.1 (0.9-1.1); Partial Thromboplastin Time 27.9 Seconds (21.0-31.0); Prothrombin Time 11.1 Seconds (9.0-12.0)
[2019-09-26 15:44] LABS: Alanine Aminotransferase 53 U/L (12-78); Albumin Level 3.8 gm/dl (3.4-5.0); Aspartate Aminotransferase 38 U/L (15-37); BUN Creatinine Ratio 17.4 (10-20); Blood Urea Nitrogen 20 mg/dl (7-18); Calcium 8.9 mg/dl (8.5-10.1); Carbon Dioxide 26 mmol/L (21-32); Chloride 109 mmol/L (98-107); Est GFR (African American) 79.7; Est GFR (Non-African American) 68.8; Glucose 126 mg/dl (70-99); Lipase 94 U/L (73-393); Potassium 3.9 mmol/L (3.5-5.1); Sodium 140 mmol/L (136-145)
[2019-09-26] MEDS: dilTIAZem HCL 125 MG in DEXTROSE 5% 100 ML IV SCH (15:46)
[2019-09-26 15:54] LABS: Alkaline Phosphatase 88 U/L (45-117); Bilirubin,Total 0.3 mg/dl (0.2-1); Globulin 3.9 gm/dl (2.5-4.0); Total Protein 7.7 gm/dl (6.4-8.2); Troponin I < 0.015 ng/ml (0-0.045)
[2019-09-26] MEDS ORDERED: LIDOCAINE/EPINEPHRINE 1% 20 ML VIAL INFIL ONE (16:23)
[2019-09-26] MEDS ORDERED: LIDOCAINE/EPINEPHRINE 1% 20 ML VIAL ONE (16:23)
--- NOTE | 2019-09-26 18:06 | Emergency Department Note ---
ED Visit Note Before the patient was transferred upstairs, he mentioned that he had a small abscess on his left proximal forearm. He had tried to open this with a pin a few days ago. On exam, the patient had a small area of inflammation to the left proximal posterior forearm. Small amount of puslike discharge was noted and this was sent for culture. The abscess was opened and drained as noted below. There were no complications. Abscess drainage: Using sterile technique the area was cleansed. Sterile drapes were applied. Lidocaine with epinephrine was used for anesthesia. Betadine was used for prep. An 11 blade scalpel was used to make a 1 cm incision. A small amount of pus did drain. The lesion was explored. No lo culations. The area was then dressed. There were no complications. Patient tolerated the procedure without difficulty. .
--- NOTE | 2019-09-26 18:19 | History & Physical Report ---
Date of Service September 26, 2019 Assessment & Plan (1) Atrial fibrillation with RVR: Rate control: started on diltiazem IV drip in ER. Will start PO metoprolol 12.5mg Q6H and wean diltiazem drip as able. Anticoagulation with heparin overnight given prior difficulty to rate control he may need cardioverting. FOFHR-0-OBIB 1 - consider chronic anticoagulation, will get HbA1c with a.m. labs to better assess score as he may be diabetic placing him in the moderate-high risk category TSH 0.99 TTE Consult cardiology (2) Palpitations: As above (3) Painless hematuria: History of this. Since we are restarting anticoagulation recommend repeat UA. Unclear diagnosis of this but he reports having cystoscopies in the past which have been negative. (4) Benign prostatic hyperplasia: Continue doxazosin 8 mg p.o. every afternoon (5) Olecranon bursitis of left elbow: vs abscess. Pus described in procedure note and also discussed with Dr. Shah that small amount of pus was present Start Keflex 500 mg 4 times daily pending Gram stain and culture. (6) Hypertension: Suspect he has primary hyperaldosteronism given described uncontrolled hypertension and subsequent improvement with spironolactone. Continue spironolactone 100 mg p.o. daily -can reduce if he requires blood pressure to increase metoprolol. (7) Chronic insomnia: Continue Seroquel 25 mg p.o. every afternoon (8) Hyperlipidemia: Continue simvastatin 10 mg p.o. every afternoon (9) Bipolar 1 disorder: Continue ox carbamazepine 600 mg p.o. twice daily Admission and Anticipated Discharge Date Admission Date: September 26, 2019 History of Present Illness Chief Complaint: Tachycardia, palpitations Primary Care Provider: NO PCP Mitchell Conley is a 58-year-old male with prior history of atrial fibrillation status post ablation who presents to the ER with acute onset fatigue, palpitations, skipped beats and tachycardia which he noticed after moving furniture around midday. No chest pain, nausea, shortness of breath, diaphoresis, orthopnea, PND, claudication, syncope or presyncope. He felt his pulse was irregular left for new from past experience he was in atrial fibrillation and came to the emergency room. He denies any alcohol use. He was first diagnosed with atrial fibrillation approximately 6 years ago at [facility] in [place]. At that time he was hospitalized for many days initially trialing rate control however he ended up having 3 cardioversions. He was started on warfarin at that time. Approximately 2 years later he took the opportunity to undergo ablation for the atrial fibrillation and after a short time of being in normal sinus rhythm he came off the warfarin. No fevers, chills, shortness of breath, cough, loss of taste or smell, nasal congestion. No known COVID-19 exposure. Allergies Allergy/AdvReac Type Severity Reaction Status Date / Time No Known Allergies Allergy Unverified 04/23/18 05:33 Home Medications Home Medications Medication Instructions Recorded Confirmed Type doxazosin 8 mg PO QPM 04/23/18 09/26/19 History metoprolol succinate 25 mg PO DAILY 04/23/18 09/26/19 History oxcarbazepine 600 mg PO BID 04/23/18 09/26/19 History simvastatin 10 mg PO QPM 04/23/18 09/26/19 History spironolactone 100 mg PO DAILY 04/23/18 09/26/19 History aspirin 81 mg PO DAILY 09/26/19 09/26/19 History omeprazole 20 mg PO QAM 09/26/19 09/26/19 History quetiapine 25 mg PO QPM 09/26/19 09/26/19 History Past Med/Surg History Medical History Atrial fibrillation (Chronic) Benign prostatic hyperplasia Bipolar 1 disorder Chronic insomnia Hyperlipidemia Hypertension Painless hematuria (Resolved) Social History Smoking Status: Never smoker Hx Alcohol Use: No Hx Substance Use: No Preferred Language: Slovenian Communication Ability: Effective Beliefs That Will Affect Care: None Current Living Situation: Alone Other Information That Helps Us Care for You: No Feels Safe at Home: Yes Review of Systems Review of Systems: All systems reviewed & are unremarkable except as noted in HPI & below Integumentary: 5 days of increasing swelling over the olecranon bursa on his left elbow. Overlying abrasion for potential infection. He is also been poking at it to try and relieve the fluid. Physical Exam Constitutional: well developed and + obese; no acute distress Eyes: + anicteric sclerae; normal pupil size ENMT: external ear and nose normal, oropharynx normal Neck: trachea midline, no thyromegaly + short neck and + thick neck Respiratory: normal respiratory effort, lungs clear to auscultation Cardiovascular: Rate/Rhythm: regular rate and + irregularly irregular Heart Sounds: no murmur Vessels: no JVD Extremities: normal capillary refill and + pedal edema (1+ bilateral to mid shins); no calf tenderness Gastrointestinal (Abdomen): normal bowel sounds, soft, nontender, no hepatosplenomegaly Musculoskeletal: no cyanosis or clubbing, extremities motor strength 5/5 Skin: no rashes, warm and dry Neurologic: moves all extremities and awake; no focal motor deficits and not confused Psychiatric: A+Ox3, euthymic affect Genitourinary: no CVA tenderness Lymphatic: no cervical or axillary lymphadenopathy Results & Data Results & Data ([facility]) Vital Signs (Past 12 Hours) Vital Signs Temp Pulse Resp BP Pulse Ox 09/26/19 16:20 145 H 16 95 09/26/19 16:15 104 H 12 118/89 94 09/26/19 16:10 118 H 17 114/74 95 09/26/19 16:06 103 H 15 120/73 93 09/26/19 16:00 103 H 19 109/80 94 09/26/19 15:55 84 17 102/78 93 09/26/19 15:50 122 H 15 94 09/26/19 15:45 117 H 14 107/68 95 09/26/19 15:44 124 H 12 105/66 96 09/26/19 15:40 111 H 14 122/77 95 09/26/19 15:31 159 H 17 09/26/19 15:29 101 H 27 H 100/79 09/26/19 15:24 87 15 98/76 L 09/26/19 15:21 16 09/26/19 15:10 113 H 15 09/26/19 15:08 92 H 15 09/26/19 14:55 150 H 19 174/146 H 09/26/19 14:26 36.9 C 77 20 95 Diagnostic Findings XR chest 1V portable IMPRESSION: No acute process. ECG Indication: tachycardia Rate (beats per minute): 122 Rhythm: atrial fibrillation Comparison ECG Date: from (September 26, 2019) Change: the following changes noted (Atrial fibrillation has replaced sinus rhythm) Code Status & VTE Plan Code Status Follow-up as discussed with the patient VTE Prophylaxis Plan VTE Prophylaxis will be ordered: Yes PG Care Time/CCT Total # of Minutes Spent Total Time Spent with Patient: Total time spent is greater than 50% in coordination of care (as documented) at patient's floor/unit and/or counseling patient: Coding Level of Care Code 37899 Initial Inpt Care Lvl 2 Diagnoses Atrial fibrillation with RVR I48.91 Palpitations R00.2 Painless hematuria R31.9 Benign prostatic hyperplasia N40.0 Olecranon bursitis of left elbow M70.22 Hypertension I10 Chronic insomnia F51.04 Hyperlipidemia E78.5 Bipolar 1 disorder F31.9
[2019-09-26] MEDS ORDERED: HEPARIN IV BOLUS 7,000 UNITS in SYRINGE 0 ML IV ONE (20:00)
[2019-09-26] MEDS: HEPARIN SODIUM/DEXTROSE 25,000 UNITS/500 ML BAG IV SCH (20:09)
[2019-09-26] MEDS ORDERED: HEPARIN IV BOLUS 8,000 UNITS in SYRINGE 0 ML IV ONE (20:15)
[2019-09-26] MEDS: DOXAZosin MESYLATE 4 MG TAB PO SCH (20:48)
[2019-09-26] MEDS: QUETIAPINE FUMARATE 25 MG TABLET PO SCH (20:49)
[2019-09-26] MEDS: OXcarbazepine 150 MG TABLET PO SCH (20:50)
[2019-09-26] MEDS: SIMVASTATIN 10 MG TAB PO SCH (20:50)
[2019-09-26] MEDS ORDERED: METOPROLOL TARTRATE 25 MG TAB PO SCH (23:15)
[2019-09-26] MEDS: METOPROLOL TARTRATE 25 MG TAB PO SCH (23:42)
[2019-09-26] MEDS: cephALEXin 500 MG CAP PO SCH (23:42)
[2019-09-27 02:13] LABS: Hematocrit (blood only) 41.7 % (42-52); Hemoglobin 14.3 g/dL (14.0-18.0)
[2019-09-27 02:29] LABS: BUN Creatinine Ratio 16.6 (10-20); Blood Urea Nitrogen 18 mg/dl (7-18); Calcium 8.7 mg/dl (8.5-10.1); Carbon Dioxide 28 mmol/L (21-32); Chloride 110 mmol/L (98-107); Creatinine Clr Calc Pharmacy 109.4 ml/min; Est GFR (Non-African American) 75.1; Glucose 110 mg/dl (70-99); Potassium 4.1 mmol/L (3.5-5.1); Sodium 143 mmol/L (136-145)
[2019-09-27 02:33] LABS: Partial Thromboplastin Ratio 2.9
[2019-09-27 02:34] LABS: Troponin I < 0.015 ng/ml (0-0.045)
[2019-09-27 02:58] LABS: Partial Thromboplastin Time 80.3 Seconds (21.0-31.0)
[2019-09-27] MEDS: METOPROLOL TARTRATE 25 MG TAB PO SCH ×3 (05:41→17:34)
[2019-09-27 06:46] LABS: Appearance Urine Clear (Clear); Bilirubin Urine Negative (Negative); Blood Urine Negative (Negative); Color Urine Yellow; Glucose Urine UA Negative (Negative); Ketones Urine Negative (Negative); Leukocyte Esterase Urine Negative (Negative); Nitrite Urine Negative (Negative); Protein Urine Negative (Negative); Specific Gravity Urine 1.016 (1.000-1.030); Urobilinogen Urine Negative (Negative)
[2019-09-27] MEDS: ASPIRIN 81 MG ECTAB PO SCH (07:50)
[2019-09-27] MEDS: SPIRONOLACTONE 100 MG TAB PO SCH (07:50)
[2019-09-27] MEDS: cephALEXin 500 MG CAP PO SCH ×4 (07:51→19:36)
[2019-09-27] MEDS: PANTOprazole 40 MG TAB PO SCH (07:51)
[2019-09-27] MEDS ORDERED: PANTOprazole 40 MG TAB PO ONE (07:51)
[2019-09-27] MEDS: OXcarbazepine 150 MG TABLET PO SCH ×2 (07:51→19:38)
[2019-09-27] MEDS: dilTIAZem HCL 125 MG in DEXTROSE 5% 100 ML IV SCH (09:21)
[2019-09-27] MEDS: HEPARIN SODIUM/DEXTROSE 25,000 UNITS/500 ML BAG IV SCH (09:21)
--- NOTE | 2019-09-27 09:38 | Cardiology Consultation ---
Date of Consultation September 27, 2019 Assessment & Plan (1) Atrial fibrillation with RVR: He presented with AF with a rapid HR, now markedly improved on low dose diltiazem. I discussed options and he prefers conversion to rate control and discharge. Will try Corvert, if unsuccessful today will plan electrical cardioversion tomorrow. Agree with change to Eliquis 5 mg BID from heparin and discontinuation of diltiazem. Now on metoprolol 50 mg daily in divided dose. (2) Hypertension: (3) Hyperlipidemia: History of Present Illness Reason for Consultation: AF with RVR Attending Physician: Eliana Pacheco DO History of Present Illness The is a 58-year-old male with prior history of atrial fibrillation initially evaluated approximately 6 years ago at [facility] in [place]. He was initially treated with rate control and had 3 cardioversions. He was started on warfarin at that time. Approximately 2 years later he had ablation for the atrial fibrillation and after a short time of being in normal sinus rhythm warfarin was discontinued. He presents to the ER with acute onset fatigue, palpitations, skipped beats and tachycardia which he noticed after moving furniture around midday on 09/26/2019. No other cardiac symptoms. He takes metoprolol succinate 25 mg daily. His ECG showed AF with a HR of 122 BPM. His echo here suggests low normal LV function, but done in AF. He was hospitalized here and started on IV diltiazem and Heparin. HR has come under good control. He is feeling better today but not normal. He would like to return to [place] if possible. He notes a sensation in his chest, probably rhythm related, from time to time but no other complaints. Allergies Allergy/AdvReac Type Severity Reaction Status Date / Time No Known Allergies Allergy Unverified 04/23/18 05:33 Home Medications Home Medications Medication Instructions Recorded Confirmed Type doxazosin 8 mg PO QPM 04/23/18 09/26/19 History metoprolol succinate 25 mg PO DAILY 04/23/18 09/26/19 History oxcarbazepine 600 mg PO BID 04/23/18 09/26/19 History simvastatin 10 mg PO QPM 04/23/18 09/26/19 History spironolactone 100 mg PO DAILY 04/23/18 09/26/19 History aspirin 81 mg PO DAILY 09/26/19 09/26/19 History omeprazole 20 mg PO QAM 09/26/19 09/26/19 History quetiapine 25 mg PO QPM 09/26/19 09/26/19 History Patient History Medical History Atrial fibrillation (Chronic) Benign prostatic hyperplasia Bipolar 1 disorder Chronic insomnia Hyperlipidemia Hypertension Painless hematuria (Resolved) Social History Smoking Status: Never smoker Hx Alcohol Use: No Hx Substance Use: No Preferred Language: Sami Communication Ability: Effective Beliefs That Will Affect Care: None Current Living Situation: Alone Other Information That Helps Us Care for You: No Feels Safe at Home: Yes Review of Systems Review of Systems: All systems reviewed & are unremarkable except as noted in HPI & below Results & Data ([facility]) Vital Signs (Past 12 Hours) Vital Signs Temp Pulse Pulse Resp BP BP Pulse Ox 09/27/19 08:03 37.2 C 67 18 102/77 95 09/27/19 07:41 81 09/27/19 03:16 84 21 102/72 94 09/26/19 23:22 64 22 128/72 94 09/26/19 23:17 78 123/69 Laboratory Results Cardiac Enzymes 09/26/19 09/26/19 09/27/19 Range/Units 15:10 21:13 01:51 AST 38 H (15-37) U/L Troponin I < 0.015 < 0.015 < 0.015 (0-0.045) ng/ml Coagulation 09/26/19 09/27/19 09/27/19 Range/Units 15:10 01:51 08:38 PT 11.1 (9.0-12.0) Seconds APTT 27.9 80.3 H* 57.0 H* (21.0-31.0) Seconds CBC 09/26/19 09/27/19 Range/Units 15:10 01:51 WBC 7.19 (4.8-10.8) K/uL RBC 4.63 L (4.7-6.1) M/uL Hgb 14.2 14.3 (14.0-18.0) g/dL Hct 41.1 L 41.7 L (42-52) % Plt Count 163 (130-400) K/uL Neut # (Auto) 5.23 (1.4-6.5) K/uL Lymph # (Auto) 1.32 (1.2-3.4) K/uL [place] # (Auto) 0.53 (0.11-0.59) K/uL Eos # (Auto) 0.06 (0-0.5) K/uL Baso # (Auto) 0.02 (0-0.2) K/uL Comprehensive Metabolic Panel 09/26/19 09/27/19 Range/Units 15:10 01:51 Sodium 140 143 (136-145) mmol/L Potassium 3.9 4.1 (3.5-5.1) mmol/L Chloride 109 H 110 H (98-107) mmol/L Carbon Dioxide 26 28 (21-32) mmol/L BUN 20 H 18 (7-18) mg/dl Creatinine 1.15 1.07 (0.6-1.4) mg/dl Glucose 126 H 110 H (70-99) mg/dl Calcium 8.9 8.7 (8.5-10.1) mg/dl AST 38 H (15-37) U/L ALT 53 (12-78) U/L Alkaline Phosphatase 88 (45-117) U/L Total Protein 7.7 (6.4-8.2) gm/dl Albumin 3.8 (3.4-5.0) gm/dl Intake and Output 09/26/19 09/27/19 09/27/19 22:59 06:59 14:59 Intake Total 1200 / 1460.933 260.933 / 1460.933 322.517 / 322.517 Balance 1200 / 1460.933 260.933 / 1460.933 322.517 / 322.517 Intake: IV 1000 / 1260.933 260.933 / 1260.933 322.517 / 322.517 HEPARIN SODIUM/DEXTROSE 25,000 260.933 / 260.933 234.600 / 234.600 units In 500 ml @ 1,900 UNITS/ HR 38 mls/hr IV .[id number] DAPHNE Rx #:[id number] Nss 1000ML 500 ml @ 999 mls/hr 500 / 500 IV .Q31M ONE Rx#:[id number] Nss 500 ml @ 999 mls/hr IV . 500 / 500 Q31M DAPHNE Rx#:[id number] Cardizem 125 mg In D5 100 ml @ 87.917 / 87.917 5 MG/HR 5 mls/hr IV .Q24H DAPHNE Rx#:[id number] Oral 200 / 200 Other: Weight 140 kg Diagnostic Findings Telemetry shows AF with good HR control overnight and this AM PG Care Time/CCT Total # of Minutes Spent Total Time Spent with Patient: Total time spent is greater than 50% in coordination of care (as documented) at patient's floor/unit and/or counseling patient: Coding Level of Care Code 73829 Inpt Consult Level 4 Diagnoses Atrial fibrillation with RVR I48.91 Hypertension I10 Hyperlipidemia E78.5
--- NOTE | 2019-09-27 10:03 | XCELERA ---
[id number]
[2019-09-27] MEDS ORDERED: IBUTILIDE FUMARATE 0.1 MG/ML 10 ML VIAL IV ONE ×2 (11:16→12:32)
[2019-09-27] MEDS: APIXABAN 5 MG TABLET PO SCH ×2 (11:42→19:35)
[2019-09-27] MEDS ORDERED: IBUTILIDE FUMARATE 1 MG in SODIUM CHLORIDE 0.9% 50 ML IV SCH ×2 (12:00→13:00)
--- NOTE | 2019-09-27 14:05 | Anesthesiology Consultation ---
Date of Service September 27, 2019 Assessment & Plan (1) Encounter for pre-operative examination: Chart Review Chart Review: Acceptable Risk for Surgery History Height/Weight Height: 6 ft 2 in Weight: 140 kg Allergies Allergy/AdvReac Type Severity Reaction Status Date / Time No Known Allergies Allergy Unverified 04/23/18 05:33 Medications Home Medications Medication Instructions Recorded Confirmed Last Taken doxazosin 8 mg PO QPM 04/23/18 09/26/19 04/22/18 metoprolol succinate 25 mg PO DAILY 04/23/18 09/26/19 04/22/18 oxcarbazepine 600 mg PO BID 04/23/18 09/26/19 04/22/18 simvastatin 10 mg PO QPM 04/23/18 09/26/19 04/22/18 spironolactone 100 mg PO DAILY 04/23/18 09/26/19 04/22/18 aspirin 81 mg PO DAILY 09/26/19 09/26/19 Unknown omeprazole 20 mg PO QAM 09/26/19 09/26/19 Unknown quetiapine 25 mg PO QPM 09/26/19 09/26/19 Unknown Active Medications Generic Name Dose Route Start Last Admin Trade Name Freq PRN Reason Stop Dose Admin Apixaban 5 mg 09/27/19 12:00 09/27/19 11:42 Eliquis PO 10/27/19 11:59 5 mg BID DAPHNE Administration Aspirin 81 mg 09/27/19 09:00 09/27/19 07:50 Ecotrin Ectab PO 10/27/19 08:59 81 mg DAILY DAPHNE Administration Cephalexin HCl 500 mg 09/26/19 23:30 09/27/19 13:34 Keflex PO 10/03/19 23:29 500 mg QID DAPHNE Administration Doxazosin Mesylate 8 mg 09/26/19 21:00 09/26/19 20:48 Cardura PO 10/26/19 20:59 8 mg QPM DAPHNE Administration Diltiazem HCl 125 mg/ Dextrose 125 mls @ 5 mls/hr 09/26/19 15:45 09/27/19 11:19 IV 10/26/19 15:44 0 mg/hr .Q24H DAPHNE 0 mls/hr Titration Protocol 5 MG/HR Heparin Sodium/Dextrose 25,000 units in 500 mls @ 34 mls/hr 09/26/19 20:00 07/26/20 11:19 Heparin Sodium/Dextrose IV 10/26/19 19:59 0 units/hr .[id number] DAPHNE 0 mls/hr Titration Protocol 1,700 UNITS/HR Metoprolol Tartrate 12.5 mg 09/26/19 23:15 09/27/19 11:44 Lopressor PO 10/26/19 23:14 12.5 mg Q6 DAPHNE Administration Oxcarbazepine 600 mg 09/26/19 21:00 09/27/19 07:51 Trileptal PO 10/26/19 20:59 600 mg BID DAPHNE Administration Pantoprazole Sodium 40 mg 09/27/19 09:00 09/27/19 07:51 Protonix PO 10/27/19 08:59 40 mg QAM DAPHNE Administration Quetiapine Fumarate 25 mg 09/26/19 21:00 09/26/19 20:49 Seroquel PO 10/26/19 20:59 25 mg QPM DAPHNE Administration Simvastatin 10 mg 09/26/19 21:00 09/26/19 20:50 Zocor PO 10/26/19 20:59 10 mg QPM DAPHNE Administration Spironolactone 100 mg 09/27/19 09:00 09/27/19 07:50 Aldactone PO 10/27/19 08:59 100 mg DAILY DAPHNE Administration Past Medical History Medical History (Updated 09/27/19 @ 14:05 by Juarez Alvarenga MD) Atrial fibrillation (Chronic) Benign prostatic hyperplasia Bipolar 1 disorder Chronic insomnia Hyperlipidemia Hypertension Obesity Painless hematuria (Resolved) Past Surgical History Surgical History (Updated 09/27/19 @ 14:03 by Juarez Alvarenga MD) History of radiofrequency ablation (RFA) procedure for cardiac arrhythmia Social History Smoking Status: Never smoker Hx Alcohol Use: No Hx Substance Use: No Physical Exam Vital Signs Last Vital Signs Temp 36.8 C 09/27/19 11:51 Pulse 71 09/27/19 11:51 Resp 16 09/27/19 11:51 BP 118/74 09/27/19 11:51 Pulse Ox 94 09/27/19 11:51 Testing Laboratory Results 09/27/19 01:51 09/27/19 01:51 PT 11.1 Seconds (9.0-12.0) 09/26/19 15:10 INR 1.1 (0.9-1.1) 09/26/19 15:10 APTT 57.0 Seconds (21.0-31.0) H* 09/27/19 08:38 Urine Color Yellow 09/27/19 06:16 Urine Appearance Clear (Clear) 09/27/19 06:16 Urine pH 5.0 (4.5-7.5) 09/27/19 06:16 Ur Specific [place] 1.016 (1.000-1.030) 09/27/19 06:16 Urine Protein Negative (Negative) 09/27/19 06:16 Urine Glucose (UA) Negative (Negative) 09/27/19 06:16 Urine Ketones Negative (Negative) 09/27/19 06:16 Urine Nitrite Negative (Negative) 09/27/19 06:16 Ur Leukocyte Esterase Negative (Negative) 09/27/19 06:16 09/26/19 Unknown Gram Stain - Final Arm,Left Deep Wound Culture - Preliminary Gram negative bacilli 09/27/19 09/27/19 11:36 07:29 POC Glucose 97 115 H Electrocardiogram Date: 09/26/19 Findings: + AFIB @ (122) and + TX (possible old anterior) Echocardiogram Date: 09/27/19 EF: 50-55% RWMA: + none Valvular Disease: + no significant valvular disease
--- NOTE | 2019-09-27 16:01 | Hospitalist Progress Note ---
Date of Service September 27, 2019 Assessment & Plan (1) Atrial fibrillation with RVR: Rate control: started on diltiazem IV drip in ER. Will start PO metoprolol 12.5mg Q6H and wean diltiazem drip as able. Anticoagulation with heparin overnight given prior difficulty to rate control he may need cardioverting. [id number] 1 - consider chronic anticoagulation, will get HbA1c with a.m. labs to better assess score as he may be diabetic placing him in the moderate-high risk category TSH WNL ECHO with EF 50-55%, mild LVH Trop neg x3 Cardiology recs for eliquis, metoprolol d/c heparin, dig gtt for PO given UE swelling Attempt at Covert cardioversion, thus far still in afib Planning for electrical cardioversion tomorrow hx of afib, had been transitioned from warfarin to aspirin 81mg s/p ablation after failed cardioversions x3 A1c pending (2) Palpitations: As above (3) Painless hematuria: History of this. Since we are restarting anticoagulation recommend repeat UA. Unclear diagnosis of this but he reports having cystoscopies in the past which have been negative. (4) Benign prostatic hyperplasia: Continue doxazosin 8 mg p.o. every afternoon (5) Olecranon bursitis of left elbow: vs abscess. Pus described in procedure note and also discussed with Dr. Shah that small amount of pus was present Start Keflex 500 mg 4 times daily pending Gram stain and culture Wound cx + for gram neg bacilli (6) Hypertension: Suspect he has primary hyperaldosteronism given described uncontrolled hypertension and subsequent improvement with spironolactone. Continue spironolactone 100 mg p.o. daily -can reduce if he requires blood pressure to increase metoprolol. (7) Chronic insomnia: Continue Seroquel 25 mg p.o. every afternoon (8) Hyperlipidemia: Continue simvastatin 10 mg p.o. every afternoon (9) Bipolar 1 disorder: Continue ox carbamazepine 600 mg p.o. twice daily Admission and Anticipated Discharge Date Admission Date: September 26, 2019 Subjective Pt feels much better. He has not had the heart palpitations and "thumping" like he was having SODDER. He states he has occasional twinges, but they resolve. He was very anxious initially about coming into the hospital due to fears of being sick or dying, but that has mostly passed. He feels fatigued overall. He is having some UE swelling, which is new for him. No LE swelling. Pt denies fever, SOB, chest pain, abd pain, n/v/c/d, LE pain. Review of Systems Review of Systems: Pertinent positives and negatives reviewed in HPI--all others negative Physical Exam Constitutional: WD/WN, vitals as above Eyes: normal visual sandhu by confrontation and + anicteric sclerae Neck: normal visual inspection and trachea midline Respiratory: normal respiratory effort, lungs clear to auscultation Cardiovascular: Rate/Rhythm: regular rate; + abnormal rhythm Gastrointestinal (Abdomen): Inspection/Auscultation: abdomen not distended Percussion/Palpation: abdomen soft; abdomen nontender Musculoskeletal: Head/Neck/Chest: normocephalic and head atraumatic b/l UE edema, peripheral pulses intact Skin: no rashes, warm and dry Neurologic: awake; not confused Speech / Cognition: normal speech Psychiatric: A+Ox3, euthymic affect Results & Data Results & Data ([facility]) Vital Signs (Past 12 Hours) Vital Signs Temp Pulse Pulse Resp BP Pulse Ox 09/27/19 15:31 36.8 C 58 L 18 113/78 94 09/27/19 11:51 36.8 C 71 16 118/74 94 09/27/19 08:03 37.2 C 67 18 102/77 95 09/27/19 07:41 81 PG Care Time/CCT Total # of Minutes Spent Total Time Spent with Patient: Total time spent is greater than 50% in coordination of care (as documented) at patient's floor/unit and/or counseling patient: Coding Level of Care Code 47027 Subseq Hosp Care Lvl 3 Diagnoses Atrial fibrillation with RVR I48.91 Palpitations R00.2 Painless hematuria R31.9 Benign prostatic hyperplasia N40.0 Olecranon bursitis of left elbow M70.22 Hypertension I10 Chronic insomnia F51.04 Hyperlipidemia E78.5 Bipolar 1 disorder F31.9
[2019-09-27] MEDS: DOXAZosin MESYLATE 4 MG TAB PO SCH (19:35)
[2019-09-27] MEDS: SIMVASTATIN 10 MG TAB PO SCH (19:37)
[2019-09-27] MEDS: QUETIAPINE FUMARATE 25 MG TABLET PO SCH (19:37)
[2019-09-28] MEDS: METOPROLOL TARTRATE 25 MG TAB PO SCH ×3 (00:24→12:07)
[2019-09-28 06:50] LABS: Basophils # (auto) 0.01 K/uL (0-0.2); Basophils % (auto) 0.2 %; Eosinophils # (auto) 0.11 K/uL (0-0.5); Eosinophils % (auto) 2.5 %; Hematocrit (blood only) 38.4 % (42-52); Hemoglobin 13.4 g/dL (14.0-18.0); Immature Granulocytes # (auto) 0.02 K/uL (0.00-0.02); Immature Granulocytes % (auto) 0.5 %; Lymphocytes # (auto) 1.41 K/uL (1.2-3.4); Lymphocytes % (auto) 32.3 %; Mean Corpuscular Hemoglobin 30.9 pg (25-34); Mean Corpuscular Hgb Conc 34.9 g/dL (32-36); Mean Corpuscular Volume 88.7 fL (80-100); Mean Platelet Volume 9.5 fL (7.4-10.4); Monocytes # (auto) 0.41 K/uL (0.11-0.59); Monocytes % (auto) 9.4 %; Neutrophils % (auto) 55.1 %; Platelet Count 138 K/uL (130-400); RDW Coefficient of Variation 12.9 % (11.5-14.5); Red Blood Count 4.33 M/uL (4.7-6.1); White Blood Count 4.36 K/uL (4.8-10.8)
[2019-09-28 06:57] LABS: Estimated Average Glucose 114 mg/dl; Hemoglobin A1C 5.6 % (4.5-5.6)
[2019-09-28 07:19] LABS: BUN Creatinine Ratio 17.1 (10-20); Calcium 8.6 mg/dl (8.5-10.1); Creatinine Clr Calc Pharmacy 101.6 ml/min; Est GFR (African American) 79.7; Est GFR (Non-African American) 68.8; Potassium 3.9 mmol/L (3.5-5.1)
[2019-09-28] MEDS ORDERED: PANTOprazole 40 MG TAB PO ONE (08:10)
[2019-09-28] MEDS: PANTOprazole 40 MG TAB PO SCH (08:10)
[2019-09-28] MEDS: OXcarbazepine 150 MG TABLET PO SCH (08:10)
[2019-09-28] MEDS: SPIRONOLACTONE 100 MG TAB PO SCH (08:10)
[2019-09-28] MEDS: cephALEXin 500 MG CAP PO SCH ×2 (08:10→12:07)
[2019-09-28] MEDS: ASPIRIN 81 MG ECTAB PO SCH (08:11)
[2019-09-28] MEDS: APIXABAN 5 MG TABLET PO SCH (08:11)
--- NOTE | 2019-09-28 11:12 | Cardiology Progress Note ---
Date of Service September 28, 2019 Assessment & Plan (1) Atrial fibrillation with RVR: He presented with AF with a rapid HR, heart rate was markedly improved on low dose diltiazem. I did give Corvert yesterday after discussing options and did convert his rhythm shortly after the second dose. Agree with Eliquis 5 mg BID. Now on metoprolol 50 mg daily in divided dose. He will be moving back to [place] in several weeks, he was only here visiting for short time, and he will need follow-up there. I would recommend not sending him home on an antiarrhythmic since we do not know how often he will have recurrences, I would increase his beta-stone and send him home on his current dose as well as continuing Eliquis. (2) Hypertension: (3) Hyperlipidemia: Admission and Anticipated Discharge Date Admission Date: September 26, 2019 Subjective He is feeling well today, he converted to sinus rhythm yesterday and feels relatively normal. No cardiovascular complaints. He is anxious to go home. Physical Exam Physical Exam: Constitutional: Alert, cooperative and in no distress. HEENT: Unremarkable Neck: No jugular venous distention, carotid pulses are normal and equal bilaterally without bruits. Pulmonary: Clear to auscultation bilaterally. Cardiac: Regular rhythm with no murmur, gallop or rub. Abdomen: Soft, nontender with normal bowel sounds. Extremities: No edema. Distal pulses intact. Neurologic: No focal findings. Gait is steady. Skin: No rash, ecchymoses or petechiae. Results & Data ([facility]) Vital Signs (Past 12 Hours) Vital Signs Temp Pulse Pulse Pulse Resp BP BP 09/28/19 08:00 36.5 C 57 L 18 107/77 09/28/19 03:54 36.9 C 53 L 19 110/69 09/28/19 00:56 53 L Pulse Ox 09/28/19 08:00 96 09/28/19 03:54 94 09/28/19 00:56 Laboratory Results CBC 09/28/19 Range/Units 06:41 WBC 4.36 L (4.8-10.8) K/uL RBC 4.33 L (4.7-6.1) M/uL Hgb 13.4 L (14.0-18.0) g/dL Hct 38.4 L (42-52) % Plt Count 138 (130-400) K/uL Neut # (Auto) 2.40 (1.4-6.5) K/uL Lymph # (Auto) 1.41 (1.2-3.4) K/uL [place] # (Auto) 0.41 (0.11-0.59) K/uL Eos # (Auto) 0.11 (0-0.5) K/uL Baso # (Auto) 0.01 (0-0.2) K/uL Comprehensive Metabolic Panel 09/28/19 Range/Units 06:41 Sodium 141 (136-145) mmol/L Potassium 3.9 (3.5-5.1) mmol/L Chloride 109 H (98-107) mmol/L Carbon Dioxide 26 (21-32) mmol/L BUN 20 H (7-18) mg/dl Creatinine 1.15 (0.6-1.4) mg/dl Glucose 91 (70-99) mg/dl Calcium 8.6 (8.5-10.1) mg/dl Intake and Output 09/27/19 09/28/19 09/28/19 22:59 06:59 14:59 Intake Total 620 / 1394.950 Balance 620 / 1394.950 Intake: Oral 620 / 955 Other: Other Intake Source NPO Weight 139.5 kg Diagnostic Findings Telemetry: He converted to sinus rhythm at around 1300 yesterday, shortly after receiving Corvert, has been in sinus rhythm and sinus bradycardia since. PG Care Time/CCT Total # of Minutes Spent Total Time Spent with Patient: Total time spent is greater than 50% in coordination of care (as documented) at patient's floor/unit and/or counseling patient: Coding Level of Care Code 79530 Subseq Hosp Care Lvl 3 Diagnoses Atrial fibrillation with RVR I48.91 Hypertension I10 Hyperlipidemia E78.5
[2019-09-28] MEDS ORDERED: METOPROLOL SUCC 25MG EXT REL TAB PO ONE (11:39)
--- NOTE | 2019-09-28 13:24 | Electrocardiogram Report ---
Test Reason : Blood Pressure : / mmHG Vent. Rate : 122 BPM Atrial Rate : 085 BPM P-R Int : 000 ms QRS Dur : 114 ms QT Int : 342 ms P-R-T Axes : 000 017 056 degrees QTc Int : 487 ms Atrial fibrillation with rapid ventricular response Possible Inferior infarct (cited on or before 17-JUL-2017) Cannot rule out Anterior infarct (cited on or before 17-JUL-2017) Abnormal ECG When compared with ECG of 23-APR-2018 04:27, Atrial fibrillation has replaced Sinus rhythm Vent. rate has increased BY 55 BPM Questionable change in initial forces of Anterior leads Confirmed by Uday Tao ([id number]) on 09/28/2019 1:24:10 PM Referred By: REFERRED SELF Confirmed By:Uday Tao
--- NOTE | 2019-09-28 17:36 | Discharge Summary ---
Date of Service September 28, 2019 Admission HPI Per Admitting Provider Mitchell Conley is a 58-year-old male with prior history of atrial fibrillation status post ablation who presents to the ER with acute onset fatigue, palpitations, skipped beats and tachycardia which he noticed after moving furniture around midday. No chest pain, nausea, shortness of breath, diaphoresis, orthopnea, PND, claudication, syncope or presyncope. He felt his pulse was irregular left for new from past experience he was in atrial fibrillation and came to the emergency room. He denies any alcohol use. He was first diagnosed with atrial fibrillation approximately 6 years ago at [facility] in [place]. At that time he was hospitalized for many days initially trialing rate control however he ended up having 3 cardioversions. He was started on warfarin at that time. Approximately 2 years later he took the opportunity to undergo ablation for the atrial fibrillation and after a short time of being in normal sinus rhythm he came off the warfarin. No fevers, chills, shortness of breath, cough, loss of taste or smell, nasal congestion. No known COVID-19 exposure. Principal Diagnosis atrial fibrillation with chemical cardioversion, pt on chronic anticoagulation Discharge Exam The patient appeared well Vital signs as documented. Lungs are clear to auscultation and appear unlabored Cardiac exam, Rhythm is regular.. No murmurs, rubs or gallops. Abdominal exam reveals normal bowel sounds, soft non tender, no masses Extremities are nonedematous and both pedal pulses are normal. Neurologic exam is alert and oriented, no focal loss of strength or sensation Skin is without bruises or rashes Psychologically is without concerns for anxiety or depression Discharge Data Allergies Allergy/AdvReac Type Severity Reaction Status Date / Time No Known Allergies Allergy Unverified 04/23/18 05:33 Consultations 09/26/19 16:12 ED Decision to Admit Stat 09/26/19 19:26 Consult Cardiology Routine 09/27/19 13:10 Consult Anesthesiology Routine Hospital Course (1) Atrial fibrillation with RVR: Pt converted with ibutalide and will continue on metoprolol TSH WNL ECHO with EF 50-55%, mild LVH Trop neg x3 Cardiology recs for eliquis, metoprolol cardioverted with ibutalide x 2 doses (2) Palpitations: As above (3) Painless hematuria: History of this. (4) Benign prostatic hyperplasia: Continue doxazosin 8 mg p.o. every afternoon (5) Olecranon bursitis of left elbow: vs abscess. Pus described in procedure note and also discussed with Dr. Shah that small amount of pus was present Start Keflex 500 mg 4 times daily pending Gram stain and culture Wound cx + for gram neg bacilli (6) Hypertension: Suspect he has primary hyperaldosteronism given described uncontrolled hypertension and subsequent improvement with spironolactone. Continue spironolactone 100 mg p.o. daily -can reduce if he requires blood pressure to increase metoprolol. (7) Chronic insomnia: Continue Seroquel 25 mg p.o. every afternoon (8) Hyperlipidemia: Continue simvastatin 10 mg p.o. every afternoon (9) Bipolar 1 disorder: Continue ox carbamazepine 600 mg p.o. twice daily Total Time Total Time Spent Total Time Spent (In Minutes): It required greater than 30 minutes to prepare this patient for discharge Discharge Plan Discharge Items Patient Disposition: Home - Self-Care Reason For Visit: ATRIAL FIBRILLATION WITH RVR Discharge Diagnosis: atrial fibrillation converted with ibutalide Condition on Discharge: Good Activity: Resume your previous activity Non-emergency contact: Primary Care Provider and User Interface Designer Call non-emergency contact if: you have any medication questions Follow-up/Referrals: PCP,NO [Primary Care Provider] - Diet: Regular Addtl Attending Provider Instructions: please follow up with cardiology on return to [place] please eliminate or reduce any caffiene Pending Studies at Discharge: No Stand-Alone Forms: My [employer], Smoking Cessation Medications and DC Order Prescriptions: Continued quetiapine 25 mg tablet 25 mg PO QPM RF: 0 aspirin 81 mg Tablet,Delayed Release (Dr/Ec) 81 mg PO DAILY RF: 0 omeprazole 20 mg capsule,delayed release(DR/EC) 20 mg PO QAM RF: 0 spironolactone 100 mg tablet 100 mg PO DAILY RF: 0 simvastatin 10 mg tablet 10 mg PO QPM RF: 0 doxazosin 4 mg tablet 8 mg PO QPM RF: 0 oxcarbazepine 600 mg Tablet 600 mg PO BID RF: 0 Changed metoprolol succinate 25 mg tablet extended release 24 hr 50 mg PO DAILY Qty: 0 RF: 0 Discharge Orders: Discharge Order (Routine); Ordered 09/28/19 Ordered By: Jung Kaur Admission Data Admit Date/Time: 09/26/19 17:02 Attending Provider: Jung Kaur Admit Provider: Fidel Dietrich Primary Care Provider: PCP,NO Other Providers: Fidel Dietrich ; Uday Tao ; Mariam Ribeiro ; Heide Stauffer ; Catalina Cabrales ; Amanda Schneider ; Sloane Magallon ; Fidelia Deal ; Juarez Alvarenga ; Germain Olivas ; Nba Irvin ; Mark Martinez ; Patricia Martinez ; Chico Michelle ; Lenore Beyer ; Abhijit Bailey ; Reyes Larsen ; Jayy William ; Chaparro Dominguez ; Marina Conley ; Mitchell Espinal ; Erica Ely ; Eli Espinal ; Jonel Pedraza ; Kaur Henry ; Iam Hernandez ; Stephanie Robles ; Carlene Virgen ; Kaur Newman ; Bre Feng ; Zachery Kumar ; Jessica Walker A ; Belinda Colon ; Zoe Leos ; Jenn Hawkins ; Ben Hawkins V ; Abhilash Vazquez ; Catalina Vaca ; Romulo Doss ; Bautista Valverde ; Selina Woods ; [place] ; Ben Buckner ; Jim Conley ; Suraj Mercado ; Kathy Hill ; Zoe Vera ; Nba Schumacher ; Omaira Schuler ; Tyson Willard ; Olivier Dominguez ; Carolee Moffett ; Chino Castillo ; Michelle Miller ; Kevin Florentino ; Chuckie Goodman ; Eli Nixon Other Interventions: Discharge Summary Assessment (RN) Last Done: 09/28/19 11:40 DC Date/Time DO NOT enter until pt leaves facility: 09/28/19 12:30 Coding Level of Care Code D/C Day Management >30 mins Diagnoses Atrial fibrillation with RVR I48.91 Palpitations R00.2 Painless hematuria R31.9 Benign prostatic hyperplasia N40.0 Olecranon bursitis of left elbow M70.22 Hypertension I10 Chronic insomnia F51.04 Hyperlipidemia E78.5 Bipolar 1 disorder F31.9
== END 2019-09-28 12:30 | disposition home or self-care (01) | DRG 310 ==
LOC: ED 14:23 → SUATTDRO 17:02 → 2E 17:02